=== PATIENT | female | born 1940 | race Caucasian/White ===

== ENCOUNTER 2018-08-31 11:09 | Emergency (ER) | payer MEDICARE, OTHER ==
[~2018-08-31] VITALS: Ht 162.6 cm; Wt 71.0 kg
[~2018-08-31 11:09] MED LIST: AMLO1TAB43 PO; ASPI-1265 PO; ATOR10TA87 PO; DEXL60CA3 PO; NEBI10TA4 PO
[2018-08-31 11:19] VITALS: BP 176/67
== END 2018-08-31 12:47 | disposition home or self-care (01) ==
LOC: ER 11:10
DX: R25.1 Tremor, unspecified (principal); I10 Essential (primary) hypertension; E78.00 Pure hypercholesterolemia, unspecified; K21.9 Gastro-esophageal reflux disease without esophagitis; Z79.82 Long term (current) use of aspirin
CPT/HCPCS: 82948; 93005; 99283

== ENCOUNTER 2020-03-28 21:24 | Observation (INO) | payer MEDICARE, OTHER ==
[~2020-03-28] VITALS: Ht 165.1 cm; Wt 68.8 kg
[2020-03-28 22:53] LABS: BASOPHILS % (AUTO) 0.4 % (0-1); EOSINOPHILS # (AUTO) 0.1 X10'3 (0-0.9); EOSINOPHILS % (AUTO) 1.6 % (0-6); HEMATOCRIT 41.4 % (35.0-45.0); HEMOGLOBIN 13.9 g/dl (12.0-16.0); LYMPHOCYTES # (AUTO) 1.2 X10'3 (1.1-4.8); LYMPHOCYTES % (AUTO) 21.7 % (21-51); MEAN CORPUSCULAR HEMOGLOBIN 31.3 PG (27.0-31.0); MEAN CORPUSCULAR HGB CONC 33.6 g/dL (33.0-36.5); MEAN CORPUSCULAR VOLUME 93.3 FL (78-98); MEAN PLATELET VOLUME 9.2 FL (7.4-10.4); MONOCYTES # (AUTO) 0.6 X10'3 (0-0.9); MONOCYTES % (AUTO) 10.1 % (2-12); NEUTROPHILS # (AUTO) 3.6 X10'3 (1.8-7.7); NEUTROPHILS % (AUTO) 66.2 % (42-75); PLATELET COUNT 148 X10'3 (140-440); RED BLOOD COUNT 4.44 X10'6 (4.20-5.60); RED CELL DISTRIBUTION WIDTH 12.8 % (11.5-14.5); WHITE BLOOD COUNT 5.5 X10'3 (4.5-11.0)
[2020-03-28 23:17] LABS: ALANINE AMINOTRANSFERASE 29 U/L (12-78); ALBUMIN 3.8 G/DL (3.4-5.0); ALBUMIN/GLOBULIN RATIO 1.1 (1.1-1.5); ALKALINE PHOSPHATASE 64 IU/L (46-116); ANION GAP 8 (8-16); ASPARTATE AMINO TRANSFERASE 21 U/L (10-37); BILIRUBIN,TOTAL 0.4 MG/DL (0.1-1.0); BLOOD UREA NITROGEN 14 MG/DL (7-18); BUN/CREATININE RATIO 15.4 (6.6-38.0); CALCIUM 8.7 MG/DL (8.5-10.1); CHLORIDE 108 MMOL/L (99-107); CREATININE 0.91 MG/DL (0.40-0.90); GLUCOSE 94 MG/DL (70-104); SODIUM 143 MMOL/L (135-145); TOTAL CARBON DIOXIDE 27.5 MMOL/L (24-32); TOTAL PROTEIN 7.3 G/DL (6.4-8.2); eGFR 60 ML/MIN
[2020-03-28 23:18] LABS: POTASSIUM 3.8 MMOL/L (3.5-5.1)
[2020-03-29] VITALS (9 sets, daily range): BP systolic 131–152; BP diastolic 61–71
[2020-03-29] MEDS ORDERED: MYCOL15CR TOP (00:05)
[2020-03-29] MEDS ORDERED: ATOR10TA87 PO (00:05)
[2020-03-29] MEDS ORDERED: CHOL20004 PO (00:05)
[2020-03-29] MEDS ORDERED: ASPI81TA52 PO (00:05)
[2020-03-29] MEDS ORDERED: LORA-269 PO (00:05)
[2020-03-29] MEDS ORDERED: OMEP20CA15 PO (00:05)
[2020-03-29] MEDS ORDERED: IBAN150T21 PO (00:05)
--- NOTE | 2020-03-29 00:10 | NUR ---
pt states that she is missing a blue jacket and her bag of medicaitons. she states that ems brought them with her from home. ems rig contacted and they state that the medications were left at home on pt coffee table. pt insists they were brought and says she will call in AM to see if they are there. weigh and charge workertirso mercado aware.
[2020-03-29] MEDS ORDERED: magnesium 2GM in 50ml NS 50 ML IV PRN (00:40)
[2020-03-29] MEDS ORDERED: magnesium Cl slow-release 64mg tablet PO PRN (00:40)
[2020-03-29] MEDS ORDERED: HYDROcodone/acetaminophen 5mg/325mg tablet PO PRN (00:40)
[2020-03-29] MEDS ORDERED: morphine 2 MG/ML inj. syringe IV PRN (00:40)
[2020-03-29] MEDS ORDERED: acetaminophen 325mg tablet PO PRN (00:40)
[2020-03-29] MEDS ORDERED: magnesium 4gm in 100ml NS 100 ML IV PRN (00:40)
[2020-03-29] MEDS ORDERED: potassium Cl 20 mEq SR tablet PO PRN ×2 (00:40)
[2020-03-29] MEDS ORDERED: ondansetron/PF 4mg/2ml inj IV PRN (00:40)
[2020-03-29] MEDS ORDERED: potassium CL 10mEq/100ml bag 100 ML IV PRN ×2 (00:40)
[2020-03-29] MEDS ORDERED: nitroGLYCERIN 0.4mg SUBLingual tab SL PRN (01:15)
[2020-03-29] MEDS ORDERED: metoprolol tartrate 1mg/ml inj IV PRN (01:15)
[2020-03-29] MEDS ORDERED: aminophylline 250mg/10ml inj. IV PRN (01:15)
--- NOTE | 2020-03-29 02:00 | NUR ---
Patient in room PCU 3017. I have received report from Isabel LOPEZ in the ER and had the opportunity to ask questions and assume patient care.
--- NOTE | 2020-03-29 02:15 | NUR ---
Patient was transported by gurney to the floor. Patient was able to walk from rney to bed with no problem. Patient in no acute distress and states that she has no pain associated with her chest.
[2020-03-29] MEDS ORDERED: regadenoson 0.4mg/5ml syringe IV ONE (06:00)
--- NOTE | 2020-03-29 06:12 | NUR ---
Problems reprioritized. Patient report given, questions answered & plan of care reviewed with Evan RN. Patient was resting comfortably during report and than ked me for her care last night.
--- NOTE | 2020-03-29 06:25 | NUR ---
Patient in room PCU 3017. I have received report from Marisabel Petit RN and had the opportunity to ask questions and assume patient care.
[2020-03-29] MEDS ORDERED: K and/or MAG REPLACEMENT MC SCH (08:00)
[2020-03-29] MEDS ORDERED: heparin, porcine 5000 units/ml vial SQ SCH (08:00)
--- NOTE | 2020-03-29 08:52 | NUR ---
Pt taken down to [facility] for huyen-scan
--- NOTE | 2020-03-29 12:30 | NUR ---
Pt DC'd home. IV removed, canula intact. Tele-box removed and returned to [facility]. Pt alert and oriented and vitals WNL upon DC. Per Dr. Cabrales, Pt is stable for DC. DC paperwork printed out and gone over with Pt. Allowed Pt to ask questions concerning DC and then answered them. Pt stated that she will call both her drip pumper and PCP on Tuesday to make follow up appt's. No new meds were prescribed for Pt. Pt's belongings gathered and sent with Pt. Pt wheeled down to lobby via wheelchair and left with for home.
[2020-03-29] MEDS ORDERED: temazepam 15mg capsule PO PRN (21:00)
--- NOTE | 2020-03-31 14:02 | NUR ---
Case Management DC follow up: Spoke w/pt via telephone. s/p: CP observation. Pt Reports:"feeling fine, so impressed by the care I received" pt states that the inside of her nose is tender and has a scab from a nasal swab. possible MRSA swab. pt states not bleeding, using Vaseline which provides some relief. Denies: Acute/continuous CP, emergent SOB, resp distress, orthopnea, dyspnea, N/V, hematemesis, weakness, vertigo, syncope episodes, orthostatic hypotension (education provided as precaution), EATON, blurry vision, s/s stroke/FAST, dysphagia, bladder pain, dysuria, polyuria, hematuria, retention, abd pain/distention, hematochezia, melena, unexplained bruising, bleeding, fever, chills. Verbalizes understanding of Rx & why prescribed; continues/resumes current Rx as ordered, denies ase r/t polypharmacy. Verbalizes compliance w/aftercare. Verbalizes understanding of s/s that warrant 9-11/ER visit for further evaluation. Pt acknowledges need to schedule/confirm/keep follow up appt w/PCP/Dr Richard will call to schedule as needed; Dr Sawant pt will call to schedule after this conv. Needs met, questions/concerns addressed at DC; No further questions/concerns r/t recent hospital stay and/or DC status at this time.
== END 2020-03-29 12:50 | disposition home or self-care (01) ==
LOC: ER 21:24 → INTOOBSV 03-29 00:59 → ED HOLD 03-29 00:59 → PCU 3S 03-29 02:00
PROVIDERS: ADMIT Internal Medicine; ATTEND Internal Medicine
DX: R07.89 Other chest pain (principal); I10 Essential (primary) hypertension; E78.5 Hyperlipidemia, unspecified; K21.9 Gastro-esophageal reflux disease without esophagitis; E78.00 Pure hypercholesterolemia, unspecified; Z90.710 Acquired absence of both cervix and uterus; Z79.82 Long term (current) use of aspirin; Z79.899 Other long term (current) drug therapy
CPT/HCPCS: 36415; 71045; 78452; 80053; 83880; 84484; 85025; 87081; 93005; 93017; 96372; 99285; A9500; G0378; J1644; J2785

== ENCOUNTER 2021-12-18 06:52 | Emergency (ER) | payer MEDICARE, OTHER ==
[~2021-12-18] VITALS: Ht 167.6 cm; Wt 75.0 kg
[~2021-12-18 06:52] MED LIST changes: -AMLO1TAB43 PO; -ASPI-1265 PO; +ASPI81TA52 PO; +CHOL20004 PO; -DEXL60CA3 PO; +IBAN150T21 PO; +LORA-269 PO; +MYCOL15CR TOP; -NEBI10TA4 PO; +OMEP20CA15 PO
[2021-12-18] MEDS ORDERED: normal saline 1000ML IV soln IVB ONE ×2 (07:05→09:30)
[2021-12-18 07:55] LABS: CLARITY,URINE CLEAR (Clear); COLOR,URINE YELLOW (Yellow); GLUCOSE, URINE NEGATIVE (Neg); KETONES,URINE NEGATIVE (Neg); LEUKOCYTE ESTERASE ,URINE NEGATIVE (Neg); NITRITES, URINE NEGATIVE (Neg); OCCULT BLOOD,URINE TRACE-INTACT (Neg); PROTEIN,URINE NEGATIVE (Neg); UROBILINOGEN,URINE 0.2 E.U/dL (0.2-1.0)
[2021-12-18 07:55] LABS: BASOPHILS % (AUTO) 0.2 % (0-1); EOSINOPHILS % (AUTO) 0.2 % (0-6); LYMPHOCYTES # (AUTO) 0.4 X10'3 (1.1-4.8); LYMPHOCYTES % (AUTO) 3.8 % (21-51); MEAN CORPUSCULAR HEMOGLOBIN 28.8 PG (27.0-31.0); MEAN CORPUSCULAR HGB CONC 32.5 g/dL (33.0-36.5); MEAN CORPUSCULAR VOLUME 88.5 FL (78-98); MEAN PLATELET VOLUME 7.7 FL (7.4-10.4); MONOCYTES # (AUTO) 0.8 X10'3 (0-0.9); MONOCYTES % (AUTO) 7.4 % (2-12); NEUTROPHILS # (AUTO) 9.8 X10'3 (1.8-7.7); NEUTROPHILS % (AUTO) 88.4 % (42-75); PLATELET COUNT 301 X10'3 (140-440); RED BLOOD COUNT 4.18 X10'6 (4.20-5.60); RED CELL DISTRIBUTION WIDTH 13.1 % (11.5-14.5); WHITE BLOOD COUNT 11.1 X10'3 (4.5-11.0)
[2021-12-18 07:59] LABS: UA COLLECTION TYPE STRAIGHT CATH
[2021-12-18 08:00] LABS: BACTERIA,URINE NONE SEEN /HPF (Neg); MUCUS STRANDS FEW /LPF (Neg); RBC,URINE 0-2 /HPF (0-2); SQUAMOUS EPITHELIAL CELL,UR FEW /LPF (FEW); WBC,URINE 0-4 /HPF (0-4)
[2021-12-18 08:22] LABS: ALANINE AMINOTRANSFERASE 15 U/L (12-78); ALBUMIN 2.2 G/DL (3.4-5.0); ALBUMIN/GLOBULIN RATIO 0.5 (1.1-1.5); ALKALINE PHOSPHATASE 67 IU/L (46-116); ANION GAP 9 (8-16); ASPARTATE AMINO TRANSFERASE 18 U/L (10-37); BILIRUBIN,TOTAL 0.5 MG/DL (0.1-1.0); BLOOD UREA NITROGEN 13 MG/DL (7-18); CALCIUM 8.1 MG/DL (8.5-10.1); CHLORIDE 107 MMOL/L (99-107); CREATININE 0.81 MG/DL (0.40-0.90); GLUCOSE 120 MG/DL (70-104); POTASSIUM 3.8 MMOL/L (3.5-5.1); SODIUM 139 MMOL/L (135-145); TOTAL CARBON DIOXIDE 23.4 MMOL/L (24-32); TOTAL PROTEIN 6.7 G/DL (6.4-8.2); eGFR 68 ML/MIN
[2021-12-18 08:25] LABS: LIPASE 62 U/L (73-393)
[2021-12-18 09:45] VITALS: BP 140/75
== END 2021-12-18 09:48 | disposition home or self-care (01) ==
LOC: ER 06:52
DX: R53.1 Weakness (principal); R63.0 Anorexia; E78.00 Pure hypercholesterolemia, unspecified; I10 Essential (primary) hypertension; J44.9 Chronic obstructive pulmonary disease, unspecified; Z79.82 Long term (current) use of aspirin
CPT/HCPCS: 36415; 71045; 80053; 81001; 83690; 84484; 85025; 93005; 99285; J7030; A4353